=== PATIENT | male | born 1955 | race Caucasian/White ===

== ENCOUNTER → 2016-10-16 | Outpatient (CLI) | payer BC ==
[~2016-10-16] MED LIST: ACET-1138 PO; ASPEC325 PO; CYCL10TA6 PO; MORP15TA19 PO; MULT-506 PO; NAPR1TAB9 PO; RXC5 PO; ULT50X PO
[2016-10-16 18:38] LABS: BASO % 0.5 %; BASO ABS # 0.03 K/uL (0-0.2); COMPLETE YES; EOS % 1.9 %; IG% 0.2 %; LYMPH % 38.8 %; LYMPH ABS # 2.47 K/uL (1.2-3.4); MEAN CELL VOLUME 83.7 fL (80-100); MEAN CORPUSCULAR HEMOGLOBIN 28.4 pg (25-34); MEAN PLATELET VOLUME 9.5 fL (7.4-10.4); MONO % 9.1 %; NEUT % 49.5 %; PLATELET COUNT 207 K/uL (130-400); RED BLOOD COUNT 5.14 M/uL (4.7-6.1); WHITE BLOOD COUNT 6.36 K/uL (4.8-10.8)
[2016-10-16 18:57] LABS: BLOOD UREA NITROGEN 16 mg/dl (7-18); BUN/CREATININE RATIO 16.1 (10-20); C-REACTIVE PROTEIN < 0.29 mg/dl (0-0.29); CALCIUM 8.8 mg/dl (8.5-10.1); CARBON DIOXIDE 29 mmol/L (21-32); CHLORIDE 105 mmol/L (98-107); GLUCOSE 95 mg/dl (70-99); POTASSIUM 4.1 mmol/L (3.5-5.1); SODIUM 140 mmol/L (136-145)
[2016-10-16 19:01] LABS: PARTIAL THROMBOPLASTIN RATIO 1.1; PROTHROMBIN TIME (PATIENT) 10.7 SECONDS (9.0-12.0)
== END | disposition home or self-care (01) ==
LOC: C.LABMFLN 12:06
PROVIDERS: ATTEND Orthopaedic Surgery Sports Medicine
DX: Z01.812 Encounter for preprocedural laboratory examination (principal)

== ENCOUNTER 2016-11-10 10:44 | Inpatient (IN) | payer BC ==
[2016-10-30 08:57] VITALS: BMI 26.0
--- NOTE | 2016-11-05 01:22 | HISTORY & PHYSICAL EXAMINATION ---
DATE OF ADMISSION: 11/10/2016 CHIEF COMPLAINT: Left knee pain. HISTORY OF PRESENT ILLNESS: A 61-year-old gentleman, who works as a financial reporting advisor, who presents for treatment of his left knee. He has got a very long history of bilateral knee pain and discomfort. He has got his left knee scoped on 2 separate occasions years ago. He has developed increased pain and discomfort in his left knee. He does have a right knee replacement, which was done just about 8 months ago and he has done well from this. Now, he would like to proceed with his left knee replacement. The shots helped very temporarily. No medicine really helps much. He limps, the more he walks. He has fairly global knee pain. PAST MEDICAL HISTORY: Significant for: 1. Hypertension. 2. Osteoarthritis, PAST SURGICAL HISTORY: Includes: 1. Left knee scope x2. 2. Right knee scope x1. 3. Right knee replacement, 03/07/2016. 4. Right distal femur osteochondroma excision. 5. Trigger finger release. 6. TMJ surgery x2. ALLERGIES: PENICILLIN WHICH CAUSES A RASH. No respiratory problems. CURRENT MEDICATIONS: Include: 1. Flexeril. 2. Aleve. SOCIAL HISTORY: A 61-year-old male. He is from [place]. He is a financial services associate. . He is self-employed. REVIEW OF SYSTEMS: Negative for diabetes, neurologic problems, vascular problems, bleeding disorders. Denies any chest pain or shortness of breath. No history of DVT or PE. PHYSICAL EXAMINATION: GENERAL: A thin healthy-appearing, middle-aged male. He looks in excellent health. He looks younger than his stated age. HEENT: Benign. NECK: Supple. No lymphadenopathy. LUNGS: Clear to auscultation. HEART: Regular rate and rhythm. ABDOMEN: Soft, nontender, nondistended. EXTREMITIES: Grossly neurovascularly intact, except as follows: Examination of the left knee reveals the patient has got a varus alignment to his knee. He has got bony hypertrophy medially. He has got well-healed portal sites around his knee. He does have a varus thrust with weightbearing. X-RAYS: X-rays of the left knee were reviewed. It shows advanced left knee medial compartment DJD. He has got complete loss of his medial joint space. ASSESSMENT: A 61-year-old gentleman, postop from a right knee replacement 8 months ago with advanced left knee degenerative joint disease. He has failed conservative care and would like to have his left knee replaced. PLAN: We will take him to the operating room and do a left total knee replacement. The risks and benefits of this procedure were explained to the patient, including, but not limited to, DVT, PE, , infection, neurological injury, vascular injury, bleeding problem, pain, limited range of motion, stiffness, failure to relieve symptoms, incomplete relief of symptoms, need for further surgery in the future, fracture, leg length inequality, nerve palsy, need for blood transfusion, etc. The patient understands and desires to proceed. Informed consent was obtained. He describes an ALLERGY TO PENICILLIN, but we can give him the Ancef preoperatively, as he has had it before. He will stop his Aleve 10 days preop. He did have a preoperative workup. Sed rate and C-reactive protein are both normal. Labs are, otherwise, normal. As far as discharge plans, he is planning to be discharged home using [facility] home health program. I will see him back 2 weeks postop.
[~2016-11-10] VITALS: Ht 188 cm; Wt 91.1 kg
[2016-11-10] VITALS (7 sets, daily range): BP systolic 95–159; BP diastolic 58–95; PULSE 66–83; TEMP 36.4–36.9; O2SAT 90–99; Ht 188 cm; Wt 91.1 kg
[~2016-11-10 10:44] MED LIST changes: -ACET-1138 PO; +ACETAMINOPHEN 500 MG TAB PO SCH; -ASPEC325 PO; +BUPIVACAINE 0.25% 30 ML VIAL ONE; +BUPIVACAINE 0.5 % 5 MG/1 ML PF 10ML VIAL ONE; +BUPIVACAINE LIPOSOME 266 MG, BUPIVACAINE/EPINEPHRINE INJ 50 ML, SODIUM CHLORIDE 0.9% PF... INFIL SCH; +CEFAZOLIN 2000 MG/60 ML D5W 60 ML IV SCH; +FAMOTIDINE 20 MG TAB PO SCH; +GABAPENTIN 300 MG CAP PO SCH; +LACTATED RINGER'S 1000ML 1,000 ML IV SCH; +LACTATED RINGER'S 1000ML 500 ML IV ONE; +LACTATED RINGER'S 1000ML IV SCH; +METOCLOPRAMIDE HCL 10 MG TAB PO SCH; -MORP15TA19 PO; -NAPR1TAB9 PO; +ROPIVACAINE 0.5% 5 MG/ML 30 ML VIAL ONE; -RXC5 PO; +SCOPOLAMINE 1.5 MG TDSY TD SCH; +TRANEXAMIC ACID INJ 1,000 MG in SODIUM CHLORIDE 0.9% 100ML 100 ML IV SCH; -ULT50X PO
--- NOTE | 2016-11-10 11:27 | History & Physical Bridge Note ---
H&P Re-Evaluation Bridge Note: I have examined the patient, reviewed the History & Physical and in the interval since the performance of the History & Physical I have noted the following changes of clinical significance: No changes noted
[2016-11-10] MEDS ORDERED: ATROPINE SULFATE 0.1 MG/ML 5ML SYR IV PRN (12:30)
[2016-11-10] MEDS ORDERED: ONDANSETRON INJ 2 MG/ML 2 ML VIAL IV PRN ×2 (12:30→15:15)
[2016-11-10] MEDS ORDERED: EpHEDrine SULFATE INJ 50 MG/ML AMP IV PRN (12:30)
[2016-11-10] MEDS ORDERED: PHENYLEPHRINE 100MCG/ML 5ML SYR IV PRN (12:30)
[2016-11-10] MEDS ORDERED: HYDROmorphone INJ 2 MG/ML SYR/VIAL IV PRN (12:30)
[2016-11-10] MEDS ORDERED: MIDAZOLAM HCL 1 MG/ML 2ML VIAL ONE ×2 (12:31→12:55)
[2016-11-10] MEDS ORDERED: FENTANYL CITRATE INJ 50 MCG/1 ML 2 ML VIAL ONE (12:31)
[2016-11-10] MEDS ORDERED: SODIUM CHLORIDE 0.9% PF 50 ML VIAL ONE (12:42)
[2016-11-10] MEDS ORDERED: BUPIVACAINE/EPINEPHRINE 0.25% 1:200,000 30 ML VIAL ONE (12:42)
[2016-11-10] MEDS ORDERED: BUPIVACAINE LIPOSOME 1/3% 266 MG/20 ML VIAL INFIL ONE (12:43)
[2016-11-10] MEDS ORDERED: BACITRACIN 50000 UNIT VIAL ONE (12:43)
[2016-11-10] MEDS ORDERED: PROPOFOL IV EMULSION 10 MG/ML 20 ML VIAL IV ONE (13:30)
[2016-11-10] MEDS ORDERED: LIDOCAINE HCL 2% 2 ML VIAL (20MG/ML) ONE (13:30)
--- NOTE | 2016-11-10 15:01 | [facility] Post Operative Brief Note ---
Immediate Operative Summary Operative Date Nov 10, 2016. Pre-Operative Diagnosis Advanced Left Knee Degenerative Joint Disease Post-Operative Diagnosis Same as preoperative Procedure(s) Performed Left Total Knee Arthroplasty, Cemented Surgeon Dr. Tee Plummer Chef Surgeon(s) Joel Banuelos PA-C Estimated Blood Loss 50ml Findings Left Knee DJD Fluids (cc crystalloids) 1300 cc Specimens A.) Left knee bone and tissue Drains None Anesthesia Spinal Complication(s) None Disposition Recovery Room / PACU
[2016-11-10] MEDS ORDERED: SILVER SULFADIAZINE 1% CR 50 GM JAR EXT PRN (15:15)
[2016-11-10] MEDS ORDERED: METOCLOPRAMIDE HCL INJ 5 MG/ML 2 ML VIAL IV PRN (15:15)
[2016-11-10] MEDS ORDERED: TAMSULOSIN HCL 0.4 MG CAP PO PRN (15:15)
[2016-11-10] MEDS ORDERED: ZOLPIDEM TARTRATE 5 MG TAB PO PRN (15:15)
[2016-11-10] MEDS ORDERED: ALUMINUM/MAGNESIUM/SIMETH (MAALOX MAX) 30 ML UDC PO PRN (15:15)
[2016-11-10] MEDS ORDERED: MAGNESIUM HYDROXIDE SUSP 30 ML UDC PO PRN (15:15)
[2016-11-10] MEDS ORDERED: DiphenhydrAMINE HCL 50 MG/ML VIAL IV PRN (15:15)
[2016-11-10] MEDS ORDERED: BISACODYL 10 MG SUPP PR PRN (15:15)
[2016-11-10] MEDS ORDERED: CYCLOBENZAPRINE HCL 10 MG TAB PO PRN (15:15)
--- NOTE | 2016-11-10 15:33 | DIAGNOSTIC IMAGING REPORT ---
LEFT KNEE 1 OR 2 VIEWS ROUTINE CLINICAL HISTORY: Left knee osteoarthritis. Arthroplasty. COMPARISON: Knee radiographs January 24, 2016. FINDINGS: Alignment of the total left knee arthroplasty is anatomic. There is no fracture or unexpected radiopaque foreign body. Skin piper are present. IMPRESSION: Expected findings following total left knee arthroplasty. Electronically signed by: Dc Garsia M.D. 11/10/2016 3:31 PM Dictated Date/Time: 11/10/2016 3:30 PM
--- NOTE | 2016-11-10 15:55 | Anesthesiology Progress Note ---
Anesthesia Post Op Note Date & Time Nov 10, 2016 at 15:54 Vital Signs Pain Intensity: 0 Vital Signs Past 12 Hours Date Time Temp Pulse Resp B/P Pulse Ox O2 Delivery O2 Flow Rate FiO2 11/10/16 15:46 71 12 11/10/16 15:46 74 12 99 11/10/16 15:45 139/92 11/10/16 15:41 67 14 100 11/10/16 15:41 65 14 11/10/16 15:40 137/89 11/10/16 15:37 73 13 11/10/16 15:37 74 13 99 11/10/16 15:35 143/90 11/10/16 15:32 67 14 11/10/16 15:32 67 14 100 11/10/16 15:30 147/86 11/10/16 15:27 65 15 11/10/16 15:27 64 15 100 11/10/16 15:25 139/87 11/10/16 15:22 67 15 11/10/16 15:22 67 15 97 11/10/16 15:21 129/74 11/10/16 15:17 68 13 100 11/10/16 15:17 68 13 11/10/16 15:15 146/82 11/10/16 15:12 71 12 100 11/10/16 15:12 71 12 11/10/16 15:10 135/82 11/10/16 15:07 71 13 139/84 100 11/10/16 15:07 71 13 11/10/16 15:07 36.1 72 16 139/84 100 Mask 10 11/10/16 11:15 36.9 78 20 147/95 99 Room Air Notes Mental Status: alert / awake / arousable, participated in evaluation Pt Amnestic to Procedure: Yes Nausea / Vomiting: adequately controlled Pain: adequately controlled Airway Patency, RR, SpO2: stable & adequate BP & HR: stable & adequate Hydration State: stable & adequate Anesthetic Complications: no major complications apparent
[2016-11-10] MEDS: CHECK SCOPOLAMINE PATCH PLACEMENT SCH ×2 (16:00→23:07)
[2016-11-10] MEDS: D5W AND 1/2NSS + 20MEQ KCL 1,000 ML IV SCH ×2 (17:24→23:11)
[2016-11-10] MEDS: FERROUS GLUCONATE 324 MG TAB PO SCH (18:06)
[2016-11-10] MEDS: KETOROLAC TROMETHAMINE 30 MG/ML VIAL IV. SCH ×2 (18:07→23:08)
[2016-11-10] MEDS: TRAMADOL HCL 50 MG TAB PO PRN (19:18)
[2016-11-10] MEDS: MoRPHine SULFATE 2 MG/ML CARP IV PRN ×2 (19:33→21:49)
[2016-11-10] MEDS: DOCUSATE SODIUM 100 MG CAP PO SCH (20:51)
[2016-11-10] MEDS: ASPIRIN 325 MG ECTAB PO SCH (20:51)
[2016-11-10] MEDS: ACETAMINOPHEN 500 MG TAB PO SCH (20:52)
[2016-11-10] MEDS ORDERED: TRANEXAMIC ACID INJ 1,000 MG in SODIUM CHLORIDE 0.9% 100ML 100 ML IV SCH (21:00)
[2016-11-10] MEDS: CEFAZOLIN IV 2,000 MG in DEXTROSE 5% 50ML 50 ML IV SCH (21:25)
[2016-11-11] MEDS: TRAMADOL HCL 50 MG TAB PO PRN ×5 (00:02→21:27)
--- NOTE | 2016-11-11 01:13 | OPERATIVE REPORT ---
DATE OF OPERATION: 11/10/2016 SURGEON: Tee Plummer MD SERVICE DESK SPECIALIST: Joel Banuelos PA-C PREOPERATIVE DIAGNOSIS: Left knee degenerative joint disease. POSTOPERATIVE DIAGNOSIS: Same. PROCEDURE PERFORMED: Left cemented posterior stabilized total knee arthroplasty. COMPLICATIONS: None. ESTIMATED BLOOD LOSS: 50 mL. FLUID REPLACEMENT: 1300 mL crystalloid fluid replacement. ANESTHESIA: Spinal with adductor canal block. DRAINS: None. SPECIMENS: Left knee sent for pathology. OPERATIVE INDICATIONS: The patient is a 61-year-old very active gentleman who has a long history of bilateral knee pain and discomfort. He actually had his left knee scoped on 2 separate occasions many years ago. He continued to have persistent and progressive pain. He has been through extensive conservative treatment. He recently had his right knee replacement, doing well and now would like to have his left knee replaced. OPERATIVE FINDINGS: Operative findings revealed advanced left knee DJD. He had extensive grade 4 [id number] disease in the medial femoral condyle and medial tibial plateau with extensive eburnation. The lateral compartment was pretty well preserved. He had a varus deformity to his knee and a large knee joint effusion. OPERATIVE IMPLANTS: Operative implants consisted of: 1. Biomet Vanguard size 80 left posterior stabilized femoral component. 2. Biomet size 87 tibial tray. 3. A 12 mm posterior stabilized polyethylene insert. 4. A 37 x 10 All-Poly patella. OPERATIVE PROCEDURE: The patient taken to the operating room, identified and placed on the operating table in supine position. All contact areas were appropriately padded. IV antibiotics were provided by the anesthesia team. A spinal anesthetic and adductor canal block had been provided in the holding area. A Dillard catheter was placed in sterile fashion. A left thigh tourniquet was then placed and left lower extremity was then prepped and draped in the usual sterile fashion. The left leg was elevated and exsanguinated with Esmarch and tourniquet was placed at 300 mmHg. An anterior approach of the left knee was then performed through a longitudinal incision centered over the patella. Sharp dissection was carried out through the subcutaneous tissues down to the level of the extensor mechanism. A medial parapatellar arthrotomy incision was made. Some subperiosteal dissection was carried out medially. The fat pad was resected from beneath the patellar tendon. The lateral patellofemoral ligament was released. The patella was everted and the knee was flexed. The osteophytes were taken off the distal femur. The ACL and PCL were then released from the distal femur and the tibia subluxated anteriorly. The external tibial alignment jig was then placed in the anterior face of the tibia and adjusted 16 mm medially. Proximal tibial cut was made to take about a millimeter of bone from the most deficient aspect of the medial tibial plateau which was fairly worn. This did take a fairly large piece off laterally. Some osteophytes were taken off medial and posteromedially. The tibia was sized to a size 87. Attention was then drawn to the femur. The distal femur was entered with a sharp drill. Intramedullary canal was suctioned. A left 6-degree valgus cutting guide was placed. The distal femoral cutting block was pinned in place. Distal femoral cut was made to take an additional 3 mm of bone off the distal femur. The femur was then sized to a size 80. We did downsize this just slightly. The AP cutting block was pinned parallel to the epicondylar axis, which was 5 degrees of external rotation. The anterior cut, anterior chamfer, posterior cut, posterior chamfer cuts were made. Box cutting guide was placed and adjusted slightly lateral and the box cut was made. The knee was flexed. The remnants of the medial and lateral menisci were excised. The osteophytes were taken off the posterior aspect of the femur. A trial femoral component was placed. Tibial tray was pinned in maximum external rotation and drill and stem punch were used to create defect in proximal tibia to tibial tray. The knee was then trialed and the 12 mm insert fit most appropriately. Attention was then drawn to the patella. The patella was cleaned of all soft tissues. The patellar thickness measured 26 mm and was cut down to 15. It was sized to a size 37 patella. Lug holes were drilled for a 37 patella. Lateral osteophyte was removed. Patella button was placed. Knee was taken through range of motion and the patella tracked nicely with no thumbs test. Attention was then drawn toward placement of permanent components. All trial components were removed. A bone plug was placed in the distal femur to limit blood loss. A double batch of Palacos G cement was mixed. A left size 80 posterior stabilized femoral component, size 87 tibial tray, 12 mm posterior stabilized polyethylene insert, and a 37 x 10 All-Poly patella were then cemented in place. Knee was brought out into full extension until cement hardened. A final cement check was then performed. Pericapsular tissues were injected with a total of 100 mL of a combination of 20 mL of Exparel, 30 mL of normal saline, 50 mL of 0.25% Marcaine with epinephrine. The tourniquet was then let down for time of 57 minutes. Hemostasis was assured using electrocautery. The wound was once again irrigated. The extensor mechanism was then closed with a combination of #1 PDS suture and #1 Vicryl suture in a [id number] fashion. Extensor mechanism was checked and found to be intact. Subcutaneous tissues were then closed with 2-0 Dexon suture in a buried interrupted fashion. Skin was closed with skin piper. The leg was then cleaned and dried and a sterile dressing of Xeroform, 4 x 4, sterile cast padding and Sumeet bandage were applied. The patient then transferred to the recovery room in stable condition. The patient tolerated the procedure well with no complications. All needle and sponge counts were correct at the end of the operation. I attest to the content of the Intraoperative Record and any orders documented therein. Any exceptio ns are noted below.
[2016-11-11 03:35] VITALS: BP 134/78; PULSE 81; TEMP 36.5; O2SAT 98
[2016-11-11] MEDS: CEFAZOLIN IV 2,000 MG in DEXTROSE 5% 50ML 50 ML IV SCH (03:40)
[2016-11-11] MEDS: ACETAMINOPHEN 500 MG TAB PO SCH ×3 (05:28→21:28)
[2016-11-11] MEDS: KETOROLAC TROMETHAMINE 30 MG/ML VIAL IV. SCH ×3 (05:30→17:42)
[2016-11-11 05:58] LABS: HEMATOCRIT 36.1 % (42-52); MEAN CORPUSCULAR HEMOGLOBIN 28.4 pg (25-34); MEAN CORPUSCULAR HGB CONC 33.8 g/dl (32-36); MEAN PLATELET VOLUME 9.5 fL (7.4-10.4); PLATELET COUNT 183 K/uL (130-400); WHITE BLOOD COUNT 8.39 K/uL (4.8-10.8)
[2016-11-11] MEDS: D5W AND 1/2NSS + 20MEQ KCL 1,000 ML IV SCH ×2 (06:20→12:56)
[2016-11-11 06:43] LABS: BUN/CREATININE RATIO 12.3 (10-20); CALCIUM 8.2 mg/dl (8.5-10.1); CREATININE 0.99 mg/dl (0.60-1.40); POTASSIUM 4.4 mmol/L (3.5-5.1)
[2016-11-11 07:48] VITALS: BP 162/82; PULSE 70; TEMP 36.5; O2SAT 100
[2016-11-11] MEDS: CHECK SCOPOLAMINE PATCH PLACEMENT SCH ×2 (08:00→16:25)
--- NOTE | 2016-11-11 08:39 | PROGRESS NOTE ---
DATE: 11/11/2016 DATE: 11/11/2016. SUBJECTIVE: A 61-year-old gentleman postop day #1 from a left knee replacement. He is doing pretty well. Required some morphine last evening. Denies any chest pain or shortness of breath. Not feeling dizzy or lightheaded. OBJECTIVE: VITAL SIGNS: Temperature 36.5. Vital signs stable. PHYSICAL EXAMINATION: GENERAL: Shows a healthy, pleasant, middle-aged male. He is lying in bed and looks pretty comfortable. LUNGS: Clear to auscultation. HEART: Has regular rate and rhythm. ABDOMEN: Soft, nontender, nondistended. EXTREMITY EXAMINATION: Grossly neurovascularly intact except as follows: Examination of the left lower extremity reveals the leg to be well aligned. Dressing is clean, dry, and intact. He can dorsiflex and plantarflex his foot appropriately. He is neurologically intact. LABORATORY DATA: Hemoglobin 12.2, hematocrit 36.1. Electrolytes are stable. ASSESSMENT: A 61-year-old gentleman postop day 1 from left knee replacement, doing pretty well. Pain is controlled on current pain regimen. He is neurologically intact. PLAN: 1. DVT prophylaxis including thigh-high TEDs, SCDs, and aspirin twice a day. 2. PT/OT. Weightbearing as tolerated. Left total knee protocol. 3. Pain control. Doing pretty well with current pain regimen. 4. Disposition. He is going to be discharged to home with likely some home health once adequately recovered.
[2016-11-11] MEDS ORDERED: MULTIVITAMIN TAB PO SCH (09:00)
[2016-11-11] MEDS: MULTIVITAMIN TAB PO SCH (09:01)
[2016-11-11] MEDS: ASPIRIN 325 MG ECTAB PO SCH ×2 (09:01→21:27)
[2016-11-11] MEDS: DOCUSATE SODIUM 100 MG CAP PO SCH ×2 (09:01→21:27)
[2016-11-11] MEDS: FERROUS GLUCONATE 324 MG TAB PO SCH ×3 (09:01→17:42)
[2016-11-11] MEDS: PANTOprazole SOD 40 MG TAB PO SCH (09:02)
[2016-11-11 09:32] VITALS: O2SAT 100
[2016-11-11] MEDS: MoRPHine SULFATE 2 MG/ML CARP IV PRN (09:33)
[2016-11-11 11:22] VITALS: BP 166/80; PULSE 72; TEMP 36.5; O2SAT 98
[2016-11-11 15:26] VITALS: BP 138/76; PULSE 80; TEMP 36.6; O2SAT 97
[2016-11-11] MEDS ORDERED: MORP15TA19 PO (18:35)
[2016-11-11] MEDS ORDERED: ACET-1138 PO (18:35)
[2016-11-11] MEDS ORDERED: ULT50X PO (18:35)
[2016-11-11] MEDS ORDERED: ASPEC325 PO (18:35)
--- NOTE | 2016-11-11 19:19 | Discharge Instructions ---
Discharge Instructions Date of Service Nov 11, 2016. Admission Reason for Admission: Left Knee Osteoarthritis Discharge Discharge Diagnosis / Problem: Left Knee Replacement Discharge Goals Goal(s): Decrease discomfort, Improve function, Increase independence, Improve disease control, Therapeutic intervention Activity Recommendations Activity Limitations: per Instructions/Follow-up section Weightbearing Status: Left weightbearing . Instructions / Follow-Up Instructions / Follow-Up ACTIVITY RECOMMENDATIONS: Physical Therapy: * You will go to physical therapy three times each week for four to six weeks after your surgery in order to regain your knee range of motion and to retrain your knee to work properly. * It is just as important to make sure you are getting your knee perfectly straight as it is to regain your knee bend. * Taking a pain pill an hour before therapy can help you have a more productive and comfortable therapy session. Home Exercise: * You were shown a series of exercises (heel props, heel slides, etc.) in the hospital. Do these exercises three to four times each day including the exercises you were shown in physical therapy. Walking: * Get up and walk several times each day. For the first four weeks, try not to stand or walk for more than one hour at a time. If you do stand or walk for more than one hour, you will not hurt anything, but your knee and leg will likely swell. * As you feel comfortable, you may change from the walker or crutches to a cane and then to independent walking. MEDICATIONS: New Medicine: * You will likely be taking one or more of these medications: 1. MS Contin - A long-acting pain medication. Take 1 tablet twice a day for the first ten days to decrease your baseline level of pain. 2. Tramadol - A quick and shorter-acting pain medication. Take one to two tablets every four to six hours to lessen your pain. 3. Aspirin - Thins your blood to lessen the chance of forming a blood clot. * The most common side effects of pain medicine and iron are nausea and constipation. If nausea or constipation is too much of a problem or if you have any questions about your new medicines or doses, call [facility] at . We will try to help you manage these issues. VERY IMPORTANT TO READ AND REVIEW" Pain: * The immediate post-operative period after knee replacement surgery is often quite painful. * You are given a prescription for pain medicine. You should take it, as directed, when you need it, especially before physical therapy and before going to bed. Pain that interferes with sleep is very common and can last several months. * You will likely need pain medicine for the first four to six weeks. It will not stop all of the pain. The pain will lessen and as you feel better, you may change to milder pain medicine such as Tylenol. * The most common side effects of pain medicine are nausea and constipation, so don't take more than you need. SPECIAL CARE INSTRUCTIONS: TEDs/Elastic Stockings: * The white elastic stockings help limit swelling and prevent blood clots from forming in your legs. The more you wear them, the more they work. * Wear them for six weeks after knee replacement surgery and four weeks after partial knee replacement. Prevention of Infection: * Take antibiotics one hour before any dental cleaning, dental work, urological procedure, gastrointestinal procedure or any invasive surgery in order to prevent your new joint from getting infected. * You may get the antibiotics from the doctor performing the procedure or you may call our office at before and we will call in a prescription to the pharmacy of your choice. Things to Watch For: * Drainage from the incision site that occurs more than one week after your surgery. * Severely increased knee/leg pain or swelling. * Increased redness at the incision site. * Fever above 102 degrees Fahrenheit. * Unusual chest pain or shortness of breath. * Unusual pain or burning with urination. Call [facility] at with any of the above problems or if you have any questions about your medicines or recovery. FOLLOW UP VISIT: Make an appointment to see your doctor for approximately two weeks after surgery for a progress check and staple removal by calling the office at . Current Hospital Diet Patient's current hospital diet: Regular Diet Discharge Diet Recommended Diet: Regular Diet Procedures Procedures Performed: Left Total Knee Arthroplasty, Cemented Pending Studies Studies pending at discharge: no Medical Emergencies . Who to Call and When: Medical Emergencies: If at any time you feel your situation is an emergency, please call [phone] immediately. . Non-Emergent Contact Non-Emergency issues call your: Surgeon . "Provider Documentation" section prepared by Tee Plummer. VTE Core Measure Inpt VTE Proph given/why not?: Other Anticoagulation, T.E.D. Stockings, SCD's
[2016-11-11 22:57] VITALS: BP 151/81; PULSE 75; TEMP 36.7; O2SAT 98
[2016-11-12] MEDS: CHECK SCOPOLAMINE PATCH PLACEMENT SCH ×3 (00:05→08:00)
[2016-11-12] MEDS: KETOROLAC TROMETHAMINE 30 MG/ML VIAL IV. SCH ×2 (00:05→05:40)
[2016-11-12] MEDS: TRAMADOL HCL 50 MG TAB PO PRN ×2 (02:16→08:23)
[2016-11-12] MEDS: ACETAMINOPHEN 500 MG TAB PO SCH (05:39)
[2016-11-12] MEDS: FERROUS GLUCONATE 324 MG TAB PO SCH (08:23)
[2016-11-12] MEDS: ASPIRIN 325 MG ECTAB PO SCH (08:24)
[2016-11-12] MEDS: MULTIVITAMIN TAB PO SCH (08:24)
[2016-11-12] MEDS: PANTOprazole SOD 40 MG TAB PO SCH (08:24)
--- NOTE | 2016-11-12 08:41 | PROGRESS NOTE ---
DATE: 11/12/2016 SUBJECTIVE: A 61-year-old gentleman postop day #2 from a left knee replacement. He is doing pretty well. Pretty painful after therapy yesterday, but doing better this morning. Thinks he over-did it a little bit. No chest pain or shortness of breath. Not feeling dizzy or lightheaded. OBJECTIVE: VITAL SIGNS: Temperature 36.7. Vital signs stable. GENERAL: Physical examination reveals a healthy, pleasant, middle-aged male. He is sitting up and eating breakfast. Looks pretty comfortable. LUNGS: Clear to auscultation. HEART: Regular rate and rhythm. ABDOMEN: Soft, nontender, and nondistended. EXTREMITIES: Grossly neurovascularly intact except as follows: Examination of the left lower extremity reveals the dressing to be clean, dry and intact. Small amount of bloody drainage. Some moderate swelling. He can dorsiflex and plantarflex his foot appropriately. He is neurologically intact. ASSESSMENT: A 61-year-old gentleman postop day #2 from a left knee replacement, doing pretty well. Pain is reasonably well controlled. PLAN: 1. DVT prophylaxis including thigh-high TEDs, SCDs, and aspirin twice a day. 2. PT/OT. Weightbearing as tolerated. Left total knee protocol. 3. Pain control, doing pretty well with current pain regimen. 4. Disposition: Plan to discharge to home with home health after therapy today. [facility]
[2016-11-12 08:53] VITALS: BP 151/81; PULSE 75; TEMP 36.7; O2SAT 98
--- NOTE | 2016-11-21 16:35 | DISCHARGE SUMMARY ---
ADMITTING PHYSICIAN AND SURGEON: Dr. Plummer. ADMITTING DIAGNOSIS: Left knee degenerative joint disease. SURGERY PERFORMED: Left total knee arthroplasty. SECONDARY DIAGNOSES: Hypertension and osteoarthritis. CONSULTS: None obtained. HISTORY AND PHYSICAL EXAMINATION: Well documented in the patient's chart. HOSPITAL COURSE: The patient was admitted on 11/10/2016 and underwent total knee arthroplasty. He tolerated the procedure well. There were no complications. He was transferred to the PACU postoperatively and later to the orthopedic floor for further care. He was given Ancef for antibiotic prophylaxis. MARTIN stockings, SCDs and aspirin for DVT prophylaxis. Hemoglobin, hematocrit and vital signs were monitored during his hospital stay and remained stable. He did not require any blood transfusions. There were no complications. By postoperative day 2, he was tolerating a general diet. Pain was controlled with oral pain medicine. He was participating in physical therapy and had no signs or symptoms of deep vein thrombosis. On postop day 2, he was discharged home in good condition, set up with home health services. He was given printed discharge instructions including prescriptions for extra strength Tylenol, aspirin 325 mg b.i.d., MS Contin and tramadol. He is to continue his home medications, continue physical therapy, weightbearing as tolerated, MARTIN stockings. Follow up in 10-12 days or sooner if there are any problems or concerns.
== END 2016-11-12 10:55 | disposition home health service (06) | DRG 470 ==
LOC: ENRESERVTM → ENRESERVDT → C.ACU 10:44 → C.3E 12:17
PROVIDERS: ADMIT Orthopaedic Surgery Sports Medicine; ATTEND Orthopaedic Surgery Sports Medicine
PROC: 0SRD0J9 Replacement of Left Knee Joint with Synthetic Substitute, Cemented, Open Approach (ICD-10-PCS; principal; 2016-11-10 12:30)
DX: M17.12 Unilateral primary osteoarthritis, left knee (principal); I10 Essential (primary) hypertension; M25.462 Effusion, left knee; M54.2 Cervicalgia; M21.162 Varus deformity, not elsewhere classified, left knee; Z79.899 Other long term (current) drug therapy; Z96.651 Presence of right artificial knee joint; Z79.1 Long term (current) use of non-steroidal anti-inflammatories (NSAID)

== ENCOUNTER 2024-06-25 09:04 | Inpatient (IN) ==
--- NOTE | 2024-04-28 16:18 | PAT Medication Instructions ---
Medication Instructions Date of Service April 28, 2024 Home Medications Medication Instructions Recorded clindamycin HCl 300 mg capsule 300 mg PO ONCE #2 caps 08/09/21 clindamycin HCl 300 mg capsule 600 mg (2 x 300 mg) PO ONCE #2 caps 06/15/23 clindamycin HCl 300 mg capsule 300 mg PO ONCE cyclobenzaprine 10 mg tablet 10 mg PO TID PRN multivitamin 1 tab PO QAM valsartan 80 mg tablet 80 mg PO QAM clindamycin HCl 300 mg capsule 600 mg (2 x 300 mg) PO ONCE alfuzosin 10 mg tablet,extended release 24 hr 10 mg PO QAM meloxicam 7.5 mg tablet 7.5 mg PO QAM Continue as directed clindamycin HCl 300 mg capsule 300 mg PO ONCE clindamycin HCl 300 mg capsule 600 mg (2 x 300 mg) PO ONCE ASK your surgeon for instructions meloxicam 7.5 mg tablet 7.5 mg PO QAM DO NOT take the morning of surgery multivitamin 1 tab PO QAM valsartan 80 mg tablet 80 mg PO QAM Take morning of surgery With a small sip of water, OTHERWISE NOTHING TO EAT OR DRINK AFTER MIDNIGHT: cyclobenzaprine 10 mg tablet 10 mg PO TID PRN(if needed) alfuzosin 10 mg tablet,extended release 24 hr 10 mg PO QAM Take evening before surgery cyclobenzaprine 10 mg tablet 10 mg PO TID PRN(if needed) Other Notes If you have any questions please call us at [phone] or [phone] or [phone] or [phone]
--- NOTE | 2024-05-07 14:16 | Anesthesiology Consultation ---
Date of Service May 07, 2024 Assessment & Plan (1) Encounter for pre-operative examination: Chart Review Chart Review: Acceptable Risk for Surgery and Patient seen in Pre Admission Testing Teaching & Discussion Pre-Anesthesia Teaching/Discussion Notes: Instructed NPO after midnight before surgery, except medications with 15 cc of water. Medication instructions provided according to the PAT guidelines. History Surgery Operation Date: 05/28/24 07:30 Proposed Procedures p L4-L5 Lateral Lumbar Interbody Fusion with Posterior Instrumentation and Interbody Cage - Hussain Caldwell MD Height/Weight Height: 6 ft 1.5 in Weight: 92.9 kg Allergies Allergy/AdvReac Type Severity Reaction Status Date / Time Penicillins Allergy Intermediate HIVES Verified 04/28/24 07:59 Ulxyzyw-GDI-HgN Reductase AdvReac Mild MUSCLE Verified 04/28/24 07:59 Inhibitor ACHES [Npxuhgy-Iun-Mkq Reductase Inhibitor] Medications Home Medications Medication Instructions Recorded Confirmed Last Taken clindamycin HCl 300 mg capsule 300 mg PO ONCE #2 caps 08/09/21 04/28/24 Unknown cyclobenzaprine 10 mg tablet 10 mg PO TID PRN Muscle Spasm 09/20/21 04/28/24 09/24/21 21:00 multivitamin 1 tab PO QAM 09/20/21 04/28/24 09/26/21 07:30 valsartan 80 mg tablet 80 mg PO QAM 09/20/21 04/28/24 09/26/21 07:30 clindamycin HCl 300 mg capsule 600 mg (2 x 300 mg) PO ONCE #2 caps 06/15/23 04/28/24 Unknown alfuzosin 10 mg tablet,extended 10 mg PO QAM 04/28/24 04/28/24 Unknown release 24 hr meloxicam 7.5 mg tablet 7.5 mg PO QAM 04/28/24 04/28/24 Unknown Past Medical History Medical History (Updated 05/07/24 @ 14:11 by Rama Olmstead PA-C) Arthritis BPH (benign prostatic hyperplasia) Chronic back pain Degenerative disc disease Dyslipidemia no meds Foot drop, right with back per patient Hx of basal cell carcinoma s/p excision Hypertension controlled, stable per pt Patient denies h/o stroke, seizures, heart attack, heart failure, DM, blood clots/DVTs or blood transfusions. Exercise / Class Metabolic Activity II 4-5 Yardwork/Stairs/Walk up hill (denies chest discomfort or shortness of breath with one flight of stairs) Past Family History Family History Brother Family history of diabetes mellitus Father Family history of diabetes mellitus Grandfather (Paternal) Family history of diabetes mellitus Other No family history of adverse response to anesthesia Past Surgical History Surgical History H/O arthroscopic knee surgery left x 2 right x 1 H/O colonoscopy with polypectomy H/O vasectomy History of knee surgery removal mass right-benign History of mandibular surgery "to repair tmj" History of tonsillectomy and adenoidectomy History of total knee replacement right/left Hx of shoulder surgery right Hx of surgical procedure fatty tissue removed from back of head x 2 (benign) Past Anesthesia History No Hx of Anesthesia Complications and No Family Hx of Anesthesia Complications History of PONV No Hx of PONV and No Hx of Motion Sickness Social History Smoking Status: Never smoker Do You Dip or Chew Tobacco: No (quit at age 29) Hx Alcohol Use: Yes Alcohol type: beer and wine alcohol intake frequency: a few times a week substance use type: does not use Review of Systems Snoring, denies witnessed apneas. Patient denies chest pain, shortness of breath, dyspnea on exertion, reflux, fever, chills, cough, wheezing, or palpitations. Physical Exam Vital Signs Vitals BP 151/75 P 80 TEMP 97.9 SP02 97% on RA RESP 18 Physical Patient resting comfortably in chair in no acute distress, alert and oriented, responding appropriately throughout visit Full cervical extension range of motion without pain TMD 3.5 finger breadths Mallampati Score 2 Dentition: upper left permanent bridge, denies chipped or loose teeth, caps/crowns, or implants Lungs: normal respiratory effort. Good air movement, clear throughout to auscultation, no adventitious breath sounds Cardiac: regular rate and rhythm, no murmurs noted Carotid arteries: negative bruit bilat Lab Results Anesthesia Preop Results Results Anesthesia Widget: WBC 5.87 K/ul (4.8-10.8) 05/07/24 Hgb 14.1 g/dl (14.0-18.0) 05/07/24 Hct 43.7 % (42.0-52.0) 05/07/24 Plt 218 K/uL (130-400) 05/07/24 Na 142 mmol/L (136-145) 05/07/24 K 4.3 mmol/L (3.5-5.1) 05/07/24 Cl 107 mmol/L (98-107) 05/07/24 CO2 30 mmol/L (21-32) 05/07/24 BUN 18 mg/dl (6-23) 05/07/24 Creat 0.94 mg/dl (0.6-1.4) 05/07/24 Glucose Level 99 mg/dl (70-99(Fasting)) 05/07/24 PT 10.6 Seconds (9.0-12.0) 05/07/24 PTT 28 Seconds (21-31) 05/07/24 INR 1.0 (0.9-1.1) 05/07/24 Blood Type O Positive 05/07/24 Antibody Screen NEGATIVE 05/07/24 Testing Electrocardiogram Date: 05/07/24 NSR, rate 84 bpm Chest X-Ray Date: 05/07/24 No acute cardiopulmonary findings. Stress Test Date: 08/28/22 Exercise MPHR 101% Negative for ischemia EF 57% Normal LV wall motion Grade I diastolic dysfunction Mild cLVH Mild tricuspid regurgitation
[~2024-06-25 09:04] MED LIST changes: +ALLERGY Noted to ORDERED Medication SCH; -BUPIVACAINE 0.25% 30 ML VIAL ONE; -BUPIVACAINE 0.5 % 5 MG/1 ML PF 10ML VIAL ONE; -BUPIVACAINE LIPOSOME 266 MG, BUPIVACAINE/EPINEPHRINE INJ 50 ML, SODIUM CHLORIDE 0.9% PF... INFIL SCH; -CEFAZOLIN 2000 MG/60 ML D5W 60 ML IV SCH; -CYCL10TA6 PO; -FAMOTIDINE 20 MG TAB PO SCH; -LACTATED RINGER'S 1000ML 1,000 ML IV SCH; -LACTATED RINGER'S 1000ML 500 ML IV ONE; -LACTATED RINGER'S 1000ML IV SCH; +LR 15ML/HR IV SCH; +LR 60ML/HR IV SCH; -METOCLOPRAMIDE HCL 10 MG TAB PO SCH; -MULT-506 PO; -ROPIVACAINE 0.5% 5 MG/ML 30 ML VIAL ONE; -SCOPOLAMINE 1.5 MG TDSY TD SCH; -TRANEXAMIC ACID INJ 1,000 MG in SODIUM CHLORIDE 0.9% 100ML 100 ML IV SCH; +ceFAZolin 2000MG 2,000 MG/15 ML SYR IV SCH
[2024-06-25] MEDS ORDERED: ONDANSETRON INJ 2 MG/ML 2 ML VIAL ONE (09:23)
[2024-06-25] MEDS ORDERED: ROCURONIUM BROMIDE 10 MG/ML 5 ML VIAL IV ONE ×2 (09:23→13:49)
[2024-06-25] MEDS ORDERED: DEXAMETHASONE SOD INJ 4 MG/ML VIAL ONE (09:23)
[2024-06-25] MEDS ORDERED: PROPOFOL IV EMULSION 10 MG/ML 20 ML VIAL IV ONE (09:23)
[2024-06-25] MEDS ORDERED: LIDOCAINE 2% 2 ML VIAL/AMP(20MG/ML) INFIL ONE (09:23)
[2024-06-25] MEDS ORDERED: KETAMINE HCL 10MG/ML SYR ONE (09:24)
[2024-06-25] MEDS ORDERED: MIDAZOLAM HCL 1 MG/ML 2ML VIAL ONE (09:24)
[2024-06-25] MEDS ORDERED: fentaNYL citrate PF 100 MCG/2 ML VIAL ONE ×2 (09:24→14:28)
[2024-06-25] MEDS ORDERED: GLYCOPYRROLATE 0.2 MG/ML VIAL ONE (09:28)
[2024-06-25] MEDS: LR 15ML/HR IV SCH (09:32)
[2024-06-25] MEDS: VANCOMYCIN HCL 1,500 MG in SODIUM CHLORIDE 0.9% 500 ML IV SCH (09:33)
[2024-06-25] MEDS: LR 60ML/HR IV SCH (09:33)
[2024-06-25] MEDS: GABAPENTIN 300 MG CAP PO SCH (09:45)
[2024-06-25] MEDS: ACETAMINOPHEN 500 MG TAB PO SCH (09:45)
[2024-06-25] MEDS ORDERED: ePHEDrine sulfate 50 MG/ML AMP IV PRN (10:45)
[2024-06-25] MEDS ORDERED: ATROPINE SULFATE 0.1 MG/ML 10ML SYR IV PRN (10:45)
[2024-06-25] MEDS ORDERED: ONDANSETRON INJ 2 MG/ML 2 ML VIAL IV PRN ×2 (10:45→16:24)
[2024-06-25] MEDS ORDERED: REMIFENTANIL HCL 1 MG VIAL IV ONE (11:04)
--- NOTE | 2024-06-25 11:14 | History & Physical Report ---
Date of Service June 25, 2024 History of Present Illness Chief Complaint: 68-year-old gentleman referred here for evaluation for right leg lower extremity weakness. 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 Roland and they discussed possible surgical intervention but he continued with conservative measures with exercise time and some injections working with a Dr. Shearer. It improved, but just in the last several months, since August while doing his daily exercises he noticed that he has some atrophy of the anterolateral aspect of his leg where he is developing a dropfoot after walking for a while and this has persisted with some intermittent low-grade low back pain. He did have an EMG in the left leg years ago before that, these are different types of symptoms as he did have some numbness and pain in the ball of his left foot but that is resolved. Exam reveals patient to not indicate any specific areas of low back pain. He can raise up on his toes and heels, but notes that it feels slightly weaker on the right side. While sitting I could get minimal 0 to trace reflex symmetric for the knee absent for the ankle, negative straight leg raise. His EHL and ankle strength and manual testing appear to be relatively similar. 4 views lumbar spine taken for today's office reveals patient on AP view to have some minimal scoliosis, hip joints are unremarkable, lateral view reveals what appears to be notable degenerative changes involving L5-S1 but more notably grade 1 spondylolisthesis at L4-5 which appears to be most likely degenerative in nature. Impression: Right leg lower extremity weakness, fatigue dropfoot, also right leg tibialis anterior atrophy, spondylolisthesis at L4-5. Plan: Today at this time we will have the patient go ahead with a lumbar MRI and have him return for discussion. I related him the more likely we will have to consider operative intervention due to the lower extremity weakness which I am sure is associated with this particular level. He will return after the MRI for review and discussion and we will go from there. Primary Care Provider: Carli Ivan PA-C Allergies Allergy/AdvReac Type Severity Reaction Status Date / Time Penicillins Allergy Intermediate HIVES Verified 06/25/24 09:39 Yudohqa-OFH-CgX Reductase AdvReac Mild MUSCLE Verified 06/25/24 09:39 Inhibitor ACHES [Wldfruw-Vui-Dhq Reductase Inhibitor] Home Medications Medication Instructions Recorded Confirmed Type clindamycin HCl 300 mg capsule 300 mg PO ONCE #2 caps 08/09/21 06/25/24 Rx cyclobenzaprine 10 mg tablet 10 mg PO TID PRN Muscle Spasm 09/20/21 06/25/24 History multivitamin 1 tab PO QAM 09/20/21 06/25/24 History valsartan 80 mg tablet 80 mg PO QAM 09/20/21 06/25/24 History alfuzosin 10 mg tablet,extended 10 mg PO QAM 04/28/24 06/25/24 History release 24 hr (Uroxatral) meloxicam 7.5 mg tablet 7.5 mg PO QAM 04/28/24 06/25/24 History clindamycin HCl 300 mg capsule 600 mg (2 x 300 mg) PO ONCE #4 caps 05/28/24 06/25/24 Rx Past Med/Surg History Problem List Disc degeneration, lumbosacral Degenerative spondylolisthesis Dropfoot Right leg weakness Chronic radicular lumbar pain Osteoarthritis of right shoulder Osteoarthritis of left shoulder Rotator cuff tear, left Erectile dysfunction Benign prostatic hyperplasia (BPH) with straining on urination Elevated PSA Osteoarthritis of carpometacarpal (CMC) joint of both thumbs Lymphadenopathy, mesenteric Atypical mole syndrome Elevated blood pressure reading without diagnosis of hypertension Herniated nucleus pulposus Encounter for pre-operative examination Muscle cramping Upper arm pain Medical History Foot drop, right with back per patient Degenerative disc disease Arthritis BPH (benign prostatic hyperplasia) Hypertension controlled, stable per pt Hx of basal cell carcinoma s/p excision Chronic back pain Dyslipidemia no meds Surgical History H/O vasectomy Hx of surgical procedure fatty tissue removed from back of head x 2 (benign) H/O arthroscopic knee surgery left x 2 right x 1 H/O colonoscopy with polypectomy History of tonsillectomy and adenoidectomy History of mandibular surgery "to repair tmj" History of knee surgery removal mass right-benign Hx of shoulder surgery right History of total knee replacement right/left Family History Brother Family history of diabetes mellitus Father Family history of diabetes mellitus Grandfather (Paternal) Family history of diabetes mellitus Other No family history of adverse response to anesthesia Social History Smoking Status: Never smoker Tobacco Type: Smokeless Tobacco (Dip or Chew) Second Hand Exposure: Yes (as a child); Do You Dip or Chew Tobacco: No (quit at age 29); Hx Alcohol Use: Yes Alcohol type: beer and wine Preferred Language: Trinidadian Communication Ability: Effective Welcome Center Attendant Required: No Beliefs That Will Affect Care: Muslim Muslim Beliefs: Jew Current Living Situation: Spouse Current Living Situation Comment: LIVES WITH SPOUSE current occupational status: employed Feels Safe at Home: Yes Safety Concerns: Feels Safe At This Time Assistive Devices: Glasses and Hearing Aid - Bilateral Results & Data Results & Data Vital Signs (Past 12 Hours) Vital Signs Temp Pulse Resp BP Pulse Ox O2 Del Method 06/25/24 09:35 36.7 C 80 18 160/82 H 97 Room Air
--- NOTE | 2024-06-25 11:14 | History & Physical Bridge Note ---
Date of Service June 25, 2024 History & Physical Bridge Note I have examined the patient, reviewed the History & Physical and in the interval since the performance of the History & Physical I have noted the following changes of clinical significance: no changes noted
[2024-06-25] MEDS ORDERED: SUGAMMADEX SODIUM 200 MG/2 ML VIAL IV ONE (12:34)
[2024-06-25] MEDS ORDERED: ePHEDrine sulfate 50 MG/5 ML SYR ONE (12:36)
[2024-06-25] MEDS: GELATIN SPONGE 12-7MM ONE (15:55)
[2024-06-25] MEDS: VANCOMYCIN HCL 1000MG/20ML VIAL ONE (15:59)
[2024-06-25] MEDS: THROMBIN 5000 UNITS KIT ONE (16:05)
[2024-06-25] MEDS: BUPIVACAINE/EPINEPHRINE 0.5% MPF 1:200,000 30 ML VIAL ONE (16:05)
--- NOTE | 2024-06-25 16:23 | Post Operative Brief Note ---
PG Immediate Post Op with CF Date of Surgery June 25, 2024 Pre & Post Diagnosis Operation Date: 06/25/24 10:50 Pre-Op Diagnosis: Degenerative spondylolisthesis L4-5 with disc degeneration L5-S1, right leg weakness Post-Op Diagnosis: Degenerative spondylolisthesis L4-5 with disc degeneration L5-S1, right leg weakness I identified the patient and participated in the time-out.: Yes Procedure Operation Date: 06/25/24 10:50 Actual Procedures p L4-L5 Lateral Lumbar Interbody Fusion with Posterior Instrumentation and Interbody Cage, Spinal Cord Monitoring(Not Applicable) - Hussain Caldwell MD Surgeon Hussain Caldwell MD Anesthesiology Tech Jose Alejandro Alcocer Estimated Blood Loss 30 Findings Consistent with Post-Op Diagnosis Specimens Specimen Description: None per surgeon Drains Dillard Catheter (inserted by Ana Salinas RN without difficulty, draining clear yellow urine )
[2024-06-25] MEDS ORDERED: DO NOT ADMINISTER FLU VACCINE PRN (16:24)
[2024-06-25] MEDS ORDERED: ONDANSETRON 4 MG OD TAB PO PRN (16:24)
[2024-06-25] MEDS ORDERED: PROMETHAZINE 12.5 MG/50.5 ML BAG IV PRN (16:24)
[2024-06-25] MEDS ORDERED: ACETAMINOPHEN 1,000 MG/100 ML VIAL IV PRN (16:24)
[2024-06-25] MEDS ORDERED: LORazepam 2 MG/1 ML VIAL IV PRN (16:24)
[2024-06-25] MEDS ORDERED: diphenhydrAMINE Capsule 25 MG CAP PO PRN (16:24)
[2024-06-25] MEDS ORDERED: METOCLOPRAMIDE HCL INJ 5 MG/ML 2 ML VIAL IV PRN (16:24)
[2024-06-25] MEDS ORDERED: SOD PHOSPHATE/SOD BIPHOSPHATE ENEMA 132 ML BTL PR PRN (16:24)
[2024-06-25] MEDS ORDERED: hydrOXYzine HCl 25 MG TAB PO PRN (16:24)
[2024-06-25] MEDS ORDERED: bisacodyL 10 MG SUPP PR PRN (16:24)
[2024-06-25] MEDS ORDERED: HYDROmorphone INJ 1 MG/ML SYRINGE IV PRN (16:24)
[2024-06-25] MEDS ORDERED: DO NOT ADMINISTER PNEUMOCOCCAL VACCINE PRN (16:24)
[2024-06-25] MEDS ORDERED: NALOXONE HCL 0.4 MG/1 ML VIAL/CARP IV PRN (16:24)
[2024-06-25] MEDS ORDERED: ALUMINUM/MAGNESIUM SUSP 30 ML UDC PO PRN (16:24)
[2024-06-25] MEDS ORDERED: MAGNESIUM HYDROXIDE SUSP 30 ML UDC PO PRN (16:24)
[2024-06-25] MEDS ORDERED: FAMOTIDINE 20 MG TAB PO PRN (16:24)
[2024-06-25] MEDS ORDERED: LORazepam 0.5 MG TAB PO PRN (16:24)
[2024-06-25] MEDS: fentaNYL citrate PF 100 MCG/2 ML VIAL IV PRN (16:38)
[2024-06-25] MEDS: HYDROmorphone INJ 2 MG/ML SYR/VIAL ONE (16:58)
[2024-06-25] MEDS: HYDROmorphone INJ 2 MG/ML SYR/VIAL IV STA (16:59)
[2024-06-25] MEDS ORDERED: CYCLOBENZAPRINE HCL 10 MG TAB PO PRN (18:25)
--- NOTE | 2024-06-25 18:25 | Anesthesiology Progress Note ---
Date of Service June 25, 2024 Anesthesia Post Procedure Vital Signs Vital Signs: Temp Pulse Pulse Resp BP Pulse Ox O2 Del Method 06/25/24 18:00 80 12 174/96 H 98 Room Air 06/25/24 17:45 86 20 159/95 H 95 Room Air 06/25/24 17:35 81 12 159/92 H 97 Room Air 06/25/24 17:25 97.5 F L 83 14 167/93 H 99 Room Air 06/25/24 17:15 80 12 138/88 99 Room Air 06/25/24 17:05 83 12 170/96 H 100 Nasal Cannula 06/25/24 16:55 87 12 168/99 H 99 Nasal Cannula 06/25/24 16:45 88 12 166/88 H 100 Nasal Cannula 06/25/24 16:35 89 14 165/97 H 100 Nasal Cannula 06/25/24 16:27 96.8 F L 94 H 14 153/86 H 97 Nasal Cannula 06/25/24 09:35 98.1 F 80 18 160/82 H 97 Room Air O2 Flow Rate 06/25/24 18:00 06/25/24 17:45 06/25/24 17:35 06/25/24 17:25 06/25/24 17:15 06/25/24 17:05 2 06/25/24 16:55 2 06/25/24 16:45 2 06/25/24 16:35 4 06/25/24 16:27 4 06/25/24 09:35 Pain Intensity Back: Pain Intensity: 5 Transfer of Care Handoff Completed per policy Notes Mental Status: alert / awake / arousable and participated in evaluation Patient Amnestic to Procedure: Yes Nausea / Vomiting: adequately controlled Pain: adequately controlled Airway Patency, RR, SpO2: stable & adequate BP & HR: stable & adequate Hydration State: stable & adequate Anesthetic Complications: no major complications apparent and Pt Satisfied with anesthetic care
[2024-06-25] MEDS: oxyCODONE/ACETAMINOPHEN 5mg/325mg TAB PO PRN (18:48)
[2024-06-25] MEDS: DOCUSATE SODIUM/SENNA 50/8.6MG TAB PO SCH (21:03)
[2024-06-25] MEDS: ACETAMINOPHEN 500 MG TAB PO PRN (21:03)
[2024-06-25] MEDS: ceFAZolin 1000MG 1,000 MG/7.5 ML SYR IV SCH (22:13)
[2024-06-26] MEDS: HYDROmorphone INJ 0.5 MG/0.5 ML SYR IV PRN (01:16)
[2024-06-26 05:24] VITALS: O2SAT 96
[2024-06-26] MEDS: POLYETHYLENE (MIRALAX) 17 GM PACK PO SCH (05:37)
--- NOTE | 2024-06-26 08:12 | Consultation ---
Date of Consultation June 26, 2024 Assessment & Plan (1) Disc degeneration, lumbosacral: 69-year-old male with past medical history significant for hyperlipidemia, hypertension, mesenteric lymphadenopathy, statin intolerance, BPH is status post back surgery .Postprocedure doing okay. Patient states ambulated today morning. Has some soreness at the surgical site. Denies any headache. No runny nose. No cough. Some sore throat from the procedure from the tube. Denies chest pain or shortness of breath. No nausea. No abdominal pain. Micturating okay. Did not move his bowels today. Resting comfortably. Lumbosacral disc degeneration Status post back surgery Management as per orthopedics Hypertension On valsartan Will monitor DVT prophylaxis and disposition as per orthopedics History of Present Illness Requesting Physician: 69-year-old male with past medical history significant for hyperlipidemia, hypertension, mesenteric lymphadenopathy, statin intolerance, BPH is status post back surgery .Postprocedure doing okay. Patient states ambulated today morning. Has some soreness at the surgical site. Denies any headache. No runny nose. No cough. Some sore throat from the procedure from the tube. Denies chest pain or shortness of breath. No nausea. No abdominal pain. Micturating okay. Did not move his bowels today. Resting comfortably. Past medical history. As mentioned above Past surgical history. Bilateral total knee arthroplasty. Colonoscopy. Injection of spine. Social history. Former user of smokeless tobacco. Quit in 1983. Alcohol occasional. No drug use. Family history. Mother had lung cancer. Hyperlipidemia. Father had diabetes. Heart disorder. Hyperlipidemia. Skin cancer. Brother has diabetes. Paternal grandfather had diabetes. Reason for Consultation: Status post back surgery Attending Physician: Hussain Caldwell MD Allergies Allergy/AdvReac Type Severity Reaction Status Date / Time Penicillins Allergy Intermediate HIVES Verified 06/25/24 09:39 Tkvwmec-VBP-CuX Reductase AdvReac Mild MUSCLE Verified 06/25/24 09:39 Inhibitor ACHES [Whvxmwc-Cnr-Wfh Reductase Inhibitor] Home Medications Medication Instructions Recorded Confirmed Type clindamycin HCl 300 mg capsule 300 mg PO ONCE #2 caps 08/09/21 06/25/24 Rx cyclobenzaprine 10 mg tablet 10 mg PO TID PRN Muscle Spasm 09/20/21 06/25/24 History multivitamin 1 tab PO QAM 09/20/21 06/25/24 History valsartan 80 mg tablet 80 mg PO QAM 09/20/21 06/25/24 History alfuzosin 10 mg tablet,extended 10 mg PO QAM 04/28/24 06/25/24 History release 24 hr (Uroxatral) meloxicam 7.5 mg tablet 7.5 mg PO QAM 04/28/24 06/25/24 History clindamycin HCl 300 mg capsule 600 mg (2 x 300 mg) PO ONCE #4 caps 05/28/24 06/25/24 Rx Patient History Medical History Foot drop, right with back per patient Degenerative disc disease Arthritis BPH (benign prostatic hyperplasia) Hypertension controlled, stable per pt Hx of basal cell carcinoma s/p excision Chronic back pain Dyslipidemia no meds Surgical History H/O vasectomy Hx of surgical procedure fatty tissue removed from back of head x 2 (benign) H/O arthroscopic knee surgery left x 2 right x 1 H/O colonoscopy with polypectomy History of tonsillectomy and adenoidectomy History of mandibular surgery "to repair tmj" History of knee surgery removal mass right-benign Hx of shoulder surgery right History of total knee replacement right/left Family History Brother Family history of diabetes mellitus Father Family history of diabetes mellitus Grandfather (Paternal) Family history of diabetes mellitus Other No family history of adverse response to anesthesia Social History Smoking Status: Never smoker Tobacco Type: Smokeless Tobacco (Dip or Chew) Second Hand Exposure: Yes (as a child); Do You Dip or Chew Tobacco: No (quit at age 29); Hx Alcohol Use: Yes Alcohol type: beer and wine Preferred Language: Belarusian Communication Ability: Effective Blister Pack Operator Required: No Beliefs That Will Affect Care: Pentecostal Pentecostal Beliefs: Anabaptist Current Living Situation: Spouse Current Living Situation Comment: LIVES WITH SPOUSE current occupational status: employed Feels Safe at Home: Yes Safety Concerns: Feels Safe At This Time Assistive Devices: Glasses and Hearing Aid - Bilateral Review of Systems Review of Systems: All systems reviewed & are unremarkable except as noted in HPI & below Physical Exam Physical Exam: General- Not in distress. Head- atraumatic Eyes- PERRL. ENT- oropharynx clear Neck- supple, no JVD. Lungs- clear to auscultation no wheezing or crackles Heart- regular rhythm; no murmur, no gallop. Abdomen- normal bowel sounds, soft, nontender, no distension. Extremities- no pretibial edema, no erythema seen. Neuro- alert, oriented ; PERRL, no facial palsy; no dysarthria; moves extremities Musculoskeletal. s/p back surgery. Dressing intact. Results & Data Vital Signs (Past 12 Hours) Vital Signs Temp Pulse Pulse Resp BP Pulse Ox O2 Del Method 06/26/24 05:24 36.6 C 70 14 136/74 96 Room Air 06/26/24 01:02 36.6 C 84 14 145/76 H 95 Room Air 06/25/24 21:28 36.6 C 88 14 158/82 H 94 Room Air 06/25/24 20:31 37.0 C 93 H 14 151/75 H 95 Room Air 06/25/24 19:36 36.5 C 80 14 158/76 H 96 Room Air 06/25/24 19:06 36.6 C 87 18 153/90 H 92 Room Air
--- NOTE | 2024-06-26 08:12 | Fluoroscopy Report ---
FL lumbar spine 2-3V CLINICAL HISTORY: L4-L5 FUSION COMPARISON STUDY: Lumbar spine 12/24/2023 FLUOROSCOPY TIME: 366.3 seconds FLUOROSCOPY IMAGES: 10 EXPOSURE DOSE: 216.61 mGy FINDINGS: Laminectomy with discectomy and posterior approach interbody blaine and screw fusion at L4-L5. Overlying skin piper. IMPRESSION: Fluoroscopic assistance as above. ACT 112: Negative or not required by law. Electronically signed by: Art Cohen M.D. 06/26/2024 8:09 AM
[2024-06-26 08:16] VITALS: PULSE 67; RESP 16; TEMP 97.7
[2024-06-26 08:42] VITALS: BP 151/73
[2024-06-26] MEDS: TAMSULOSIN HCL 0.4 MG CAP PO SCH (08:43)
[2024-06-26] MEDS: VALSARTAN 80 MG TAB PO SCH (08:43)
[2024-06-26 08:51] LABS: Albumin Globulin Ratio 1.7 (0.9-2); BUN Creatinine Ratio 18.8 (10-20); Bilirubin,Total 0.9 mg/dl (0.2-1.0); Calcium 9.1 mg/dl (8.6-10.3); Creatinine Clr Calc Pharmacy 82.7 ml/min; Globulin 2.4 gm/dl (2.5-4.0); Potassium 4.2 mmol/L (3.5-5.1); Total Protein 6.4 gm/dl (6.0-8.3)
[2024-06-26 10:04] LABS: Basophils # (auto) 0.01 K/uL (0.00-0.20); Basophils % (auto) 0.1 %; Eosinophils # (auto) 0.01 K/uL (0.00-0.50); Eosinophils % (auto) 0.1 %; Hematocrit (blood only) 41.6 % (42.0-52.0); Hemoglobin 13.7 g/dl (14.0-18.0); Immature Granulocytes # (auto) 0.04 K/uL (0.01-0.20); Immature Granulocytes % (auto) 0.3 %; Lymphocytes # (auto) 1.62 K/uL (1.20-3.40); Mean Corpuscular Hemoglobin 28.7 pg (25.0-34.0); Mean Corpuscular Hgb Conc 32.9 g/dL (32.0-36.0); Mean Platelet Volume 9.8 fL (9.4-12.4); Monocytes # (auto) 1.11 K/uL (0.11-0.59); Monocytes % (auto) 8.9 %; Neutrophils # (auto) 9.67 K/uL (1.40-6.50); Neutrophils % (auto) 77.6 %; Platelet Count 192 K/uL (130-400); RDW Coefficient of Variation 12.7 % (11.5-14.5); RDW Standard Deviation 40.3 fL (36.4-46.3); Red Blood Count 4.78 M/uL (4.70-6.10); White Blood Count 12.46 K/ul (4.8-10.8)
--- NOTE | 2024-06-26 13:20 | Operative Report ---
PG Post Operative Report Pre & Post Diagnosis Operation Date: 06/25/24 10:50 Pre-Op Diagnosis: Degenerative spondylolisthesis L4-5 with disc degeneration L5-S1, right leg weakness Post-Op Diagnosis: Degenerative spondylolisthesis L4-5 with disc degeneration L5-S1, right leg weakness I identified the patient and participated in the time-out.: Yes Procedure Operation Date: 06/25/24 10:50 Actual Procedures p L4-L5 Lateral Lumbar Interbody Fusion with Posterior Instrumentation and Interbody Cage, Spinal Cord Monitoring(Not Applicable) - Hussain Caldwell MD Surgeon Hussain Caldwell MD Charge Attendant Jose Alejandro Alcocer Estimated Blood Loss 30 Findings Consistent with Post-Op Diagnosis Specimens none Description of Procedure 1. L4-5 Left lateral interbody arthrodesis. (10987) 2. L4-5 Left lateral interbody cage, NuVasive cohere XL 10 x 18 x 60mm lordotic. (73225) 3. L4-5 posterior nonsegmental instrumentation, NuVasive reline. (04605). Patient was taken the operating room and after adequate anesthesia was carefully positioned in the right lateral decubitus position, left side up. Once in that position and then moved ahead with obtaining fluoroscopic images and securing the patient to the operating room table in the standard fashion for a left-sided approach to the L4-5 level. Once doing so, I was able to mila the area for the incision followed by prepping and draping. A transverse incision was made over the left iliac crest, advanced down through the subcutaneous tissues and through the tissues to was able to enter the retroperitoneal region right carefully advanced the abdominal contents anteriorly was able to palpate the psoas. I then inserted the initial dilator from the NuVasive set advanced down to the lateral aspect of the L4-5 disc space, monitoring was used to confirm the location along with fluoroscopy relative to any neurologic structures, the guidewire was set. This was then advanced by the additional dilators followed by the access apparatus. Additional imaging was performed to make adjustments for proper approach to the L4-5 level, and this was secured with a jg after us visually inspecting the region and also using the monitoring probe. The lateral annulus was then incised followed by then removal of disc material from the disc space using a combination of instruments. Care was taken to remove the disc material and also cartilage from the endplates. Once this was completed, I went through trials selecting the size cage as noted which appeared to fit the interspace well and provide reduction of the spondylolisthesis. Fusion materials were then placed within the disc space and, the access apparatus was removed final inspection revealed no issues, and I then placed vancomycin powder and closed the operative site with 0 Vicryl sutures followed by 2-0 Vicryl sutures and piper for the skin. The patient was repositioned onto the Noah frame, preprepped with been performed beginning of the procedure, I brought in fluoroscopy and marked for the area of the incisions posteriorly and the side of the midline for the approach. Prep and drape was performed, began the procedure with the 2 lateral incisions followed by insertion of the Jamshidi needle which was inserted utilizing fluoroscopy and monitoring into L5 bilaterally. Guidewires were then set followed by then removal of the Jamshidi needles, they were then reinserted at the L4 level in a similar fashion with no issues. Guidewires 1 set were utilized to guide the tap followed by insertion of 6.5 millimeter screws, 50 and 55 mm in length, all with greater than 20 monitoring and proper position on fluoroscopy. Rods were then inserted, I was able to torque them to proper position inferiorly and then used this as an additional reduction tool obtaining what close to complete reduction of the spondylolisthesis. Final images were obtained, the operative sites were irrigated followed by then placement vancomycin powder, local anesthetic, 0 Vicryl sutures to the deeper fascial layer, 2-0 Vicryl sutures followed by piper to the skin. Sterile dressing was applied, the patient was taken recovery room satisfactory condition. I attest to the content of the Intraoperative Record and any orders documented therein. Any exceptions are noted below. I attest to the content of the Intraoperative Record and any orders documented therein. Any exceptions are noted below.
--- NOTE | 2024-06-26 16:39 | Discharge Summary ---
Date of Service June 26, 2024 Admission HPI (Per Admitting) Degenerative spondylolisthesis Principal Diagnosis Same as "Discharge Diagnosis" noted below under Discharge Instructions. Discharge Data Consultations 06/25/24 16:24 Consult Hospitalist Routine Procedures Performed Operation Date: 06/25/24 10:50 Actual Procedures p L4-L5 Lateral Lumbar Interbody Fusion with Posterior Instrumentation and Interbody Cage, Spinal Cord Monitoring(Not Applicable) - Hussain Calwdell MD Ordered Studies 06/25/24 [place] lumbar spine 2-3V Routine PG Care Time/CCT Total # of Minutes Spent Total Time Spent with Patient: Total time spent is greater than 50% in coordination of care (as documented) at patient's floor/unit and/or counseling patient: Discharge Plan Discharge Items Patient Disposition: Home - Self-Care Reason For Visit: Dropfoot, Degenerative Spondylolisthesis, Disc Deg Discharge Diagnosis: s/p L4-L5 Lateral Lumbar Interbody Fusion with Posterior Instrumentation and Interbody Cage Condition on Discharge: Good Activity: Per Instructions section Lifting: No more than 10 pounds Bathing: May shower/bathe in 3 days Exercise/Sports: Wait until after follow-up appointment Driving/Machine Use: Resume 3 days after discharge Weightbearing: Full weightbearing Non-emergency contact: Surgeon Call non-emergency contact if: your pain is not controlled, your temperature is above 101.5, your wound has increased redness, your wound has increased drainage and your wound pain has increased Follow-up/Referrals: Carli Ivan PA-C [Primary Care Provider] - Diet: Regular Addtl Attending Provider Instructions: May shower on 3rd day after surgery. You can wash the incision and surgical site with soap and water briefly and then blot dry with a clean towel/cloth. Cover with a new, sterile dry dressing. If unable to change your dressing, then leave hospital dressing intact and cover the area for showering. Do NOT soak incision. No strenuous activity, lifting, or exercise until further instructed. Pending Studies at Discharge: No Stand-Alone Forms: [employer], Smoking Cessation Medications and DC Order Prescriptions: New oxycodone-acetaminophen [Percocet] 5-325 mg Tablet 1 - 2 tab PO Q4H PRN (Reason: pain) Qty: 20 0RF Continued clindamycin HCl 300 mg capsule 300 mg PO ONCE Qty: 2 2RF Rx Instructions: take two caps one hour prior to dental work clindamycin HCl 300 mg capsule 600 mg PO ONCE Qty: 4 2RF Rx Instructions: take two capsules one hour before dental work multivitamin Tablet 1 tab PO QAM cyclobenzaprine 10 mg Tablet 10 mg PO TID PRN (Reason: Muscle Spasm) valsartan 80 mg Tablet 80 mg PO QAM alfuzosin [Uroxatral] 10 mg tablet extended release 24 hr 10 mg PO QAM Rx Instructions: administer after the same meal each day Discontinued meloxicam 7.5 mg tablet 7.5 mg PO QAM Discharge Orders: Discharge Order (Routine); Ordered 06/26/24 Ordered By: Jose Alejandro Coleman/Other Patient Handouts: Spinal Fusion: Posterior Lumbar Admission Data Admit Date/Time: 06/25/24 16:24 Attending Provider: Hussain Caldwell Admit Provider: Hussain Caldwell Primary Care Provider: Carli Ivan Other Providers: Cipriano Osman Other Interventions: Discharge Summary Assessment (RN) Last Done: 06/26/24 10:32
== END 2024-06-26 11:41 | disposition home or self-care (01) | DRG 451 ==
LOC: ASU 09:04 → PACUINP 16:24 → 3W 18:24